=== PATIENT | male | born 1945 | race Caucasian/White ===

== ENCOUNTER 2023-11-28 21:45 | Emergency (ER) | payer MEDICARE, SELFPAY ==
--- NOTE | ~2023-11-28 | CT_ITS ---
EXAMINATION: CT cervical spine wo con DATE: 11/28/2023 22:24 INDICATION: Head injury. TECHNIQUE: Computed tomography (CT) of the cervical spine was performed without intravenous contrast. Automated exposure control and iterative reconstruction technique were employed. The dose-length pro duct was 681.00 mGy-cm. COMPARISON: None FINDINGS: There is mild emphysema. Bone alignment is normal. Vertebral body heights are normal. There is mildly decreased disc height at C3-C4 and C4-C5 and severely decreased disc height at C5-C6 and C 6-C7. The following disc levels are specifically discussed: C2-C3: There is moderate bilateral uncovertebral joint osteoarthritis. There is severe right and mild left facet joint osteoarthritis. There is mild right neural foraminal stenosis. There is no central canal stenosis. C3-C4: There is moderate right uncovertebral joint osteoarthritis. There is ankylosis of left uncover tebral joint with moderate hypertrophy. There is mild right facet joint osteoarthritis. There is anky losis of left facet joint with moderate hypertrophy. There is mild bilateral neural foraminal stenosi s. There is mild central canal stenosis. C4-C5: There is moderate bilateral uncovertebral joint osteoarthritis. There is severe bilateral face t joint osteoarthritis. There is mild bilateral neural foraminal stenosis. There is mild central elvis l stenosis. C5-C6: There is severe bilateral uncovertebral joint osteoarthritis. There is moderate bilateral face t joint osteoarthritis. There is mild bilateral neural foraminal stenosis. There is mild central elvis l stenosis. C6-C7: There is severe bilateral uncovertebral joint osteoarthritis. There is moderate bilateral face t joint osteoarthritis. There is moderate right and mild left neural foraminal stenosis. There is mil d central canal stenosis. C7-T1: There is severe right and moderate left uncovertebral joint osteoarthritis. There is moderate right and severe left facet joint osteoarthritis. There is mild bilateral neural foraminal stenosis. There is mild central canal stenosis. IMPRESSION: 1. No fracture. 2. Severe cervical spondylosis. Reviewed, dictated and finalized at location E.
--- NOTE | ~2023-11-28 | CT_ITS ---
EXAMINATION: CT brain wo con DATE: 11/28/2023 22:24 INDICATION: Head injury. TECHNIQUE: Computed tomography (CT) of the head was performed without intravenous contrast. The mA wa s adjusted according to patient size. Iterative reconstruction technique was employed. The dose-lengt h product was 681.00 mGy-cm. COMPARISON: None FINDINGS: There is no intracranial hemorrhage, acute infarction, or abnormal intracranial mass lesion . The ventricles are normal in size. There is mild mucosal thickening paranasal sinuses. The mastoid air cells are normal. The orbits are normal. There is a left posterior scalp laceration. IMPRESSION: 1. Normal brain. Reviewed, dictated and finalized at location E. IMPRESSION: 1. Normal brain.
--- NOTE | ~2023-11-28 | XR_ITS ---
EXAMINATION: XR chest 2V DATE: 11/28/2023 22:14 INDICATION: Syncope. TECHNIQUE: Frontal and lateral views of the chest were obtained. COMPARISON: None. FINDINGS: There is mild atelectasis at left lung base. There is no pneumonia, pleural effusion, or pn eumothorax. The heart size is normal. There is mild chronic anterior wedging of multiple vertebral yudith dies. IMPRESSION: 1. Mild atelectasis at left lung base. Reviewed, dictated and finalized at location E.
[2023-11-28 21:48] VITALS: BP 99/67; PULSE 81; RESP 12; TEMP 36.8; O2SAT 98
--- NOTE | 2023-11-28 21:50 | ECG_ITS ---
Test Date: 2023-11-28 21:52:08 Measurements Intervals [place] Rate: 79 P: 28 WA: 172 QRS: 47 QRSD: 85 T: 53 QT: 336 QTc: 387 Interpretive Statements SINUS RHYTHM BASELINE ARTIFACT- II, III, AVR, AVL, AVF, V4-V6 NORMAL ECG No previous ECG available for comparison Electronically Signed On 11-29-2023 07:11:36 CDT by Alexandro Golden D.O.
[2023-11-28 22:04] LABS: Basophils Percent Auto 0.5 % (0.2-1.2); Eosinophils Absolute Auto 0.3 K/mm3 (0-0.3); Eosinophils Percent Auto 4.3 % (0-4.4); Hematocrit 36.1 % (42.0-52.0); Hemoglobin 11.8 g/dL (14.0-18.0); Immature Granulocyte Absolute 0.04 K/mm3 (0.00-0.031); Immature Granulocyte Percent A 0.7 % (0-0.5); Lymphocytes Absolute Auto 1.41 K/mm3 (0.9-3.2); Lymphocytes Percent Auto 23.1 % (18.3-44.2); Mean Corpuscular HGB Conc 32.7 g/dl (32-36); Mean Corpuscular Hemoglobin 30.8 pg (26-34); Mean Corpuscular Volume 94.3 fl (80-100); Mean Platelet Volume 10.1 fl (7.4-10.4); Monocytes Absolute Auto 0.6 K/mm3 (0.1-0.6); Monocytes Percent Auto 10.3 % (2.6-8.5); Neutrophils Absolute Auto 3.7 K/mm3 (1.3-6.7); Neutrophils Percent Auto 61.1 % (45.5-73.1); Platelet Count Result 198 k/mm3 (150-375); Red Blood Count 3.83 M/mm3 (4.6-6.20); Red Cell Distribution Width 13.2 % (11.5-14.5); White Blood Count 6.1 K/mm3 (4.5-10.0)
[2023-11-28 22:14] LABS: Alanine Aminotransferase 13 U/L (6-50); Albumin Level 4.5 g/dL (3.5-5.1); Alkaline Phosphatase 77 U/L (38-126); Anion Gap 14 mmol/L (4-12); Aspartate Amino Transferase 22 U/L (17-59); Bilirubin,Total 0.8 mg/dL (0.2-1.3); Blood Urea Nitrogen 23 mg/dL (9-20); Calcium 9.2 mg/dL (8.4-10.2); Carbon Dioxide 21 mmol/L (22-30); Chloride 103 mmol/L (98-107); Estimated CRCL calculation 38 ml/min; Estimated Glomerular Filt Rate 42; Glucose 138 mg/dL (65-110); Potassium 4.2 mmol/L (3.4-5.0); Sodium 138 mmol/L (137-145)
[2023-11-28 23:05] VITALS: BP 117/76; PULSE 87
[2023-11-28 23:06] VITALS: BP 105/72; PULSE 91
--- NOTE | 2023-11-28 23:06 | ED.GENADULT ---
HPI - General Adult General Chief complaint: Syncope Stated complaint: syncope/head injury Time Seen by Provider: 11/28/23 22:40 History of Present Illness HPI narrative: 78-year-old male presents emergency department for evaluation after having a syncopal episode. Patient states he had been at softball games all day today and possibly not drinking enough water. Patient did have some alcohol with dinner. Patient states he was feeling kind of warm there standing therefore droop picture when he had an episode of loss of consciousness and fell back and struck his head. Patient remained unconscious for approximately 1 minute. Patient denies any chest pain or shortness of breath prior to the fall. Patient denies any complaints upon arrival to the emergency department. Patient does have a posterior scalp laceration with bleeding controlled. Related Data Allergies Allergy/AdvReac Type Severity Reaction Status Date / Time No Known Allergies Allergy Verified 11/28/23 23:44 Review of Systems Review of Systems: All systems reviewed & are unremarkable except as noted in HPI and below Course Course Emergency Course: Patient has had lack was stable as described the procedure note and patient preferred to be discharged home. Vital Signs Vital signs: Vital Signs Temperature 98.3 F 11/28/23 21:48 Pulse Rate 81 11/28/23 21:48 Respiratory Rate 12 11/28/23 21:48 Blood Pressure 99/67 L 11/28/23 21:48 Pulse Oximetry 98 11/28/23 21:48 Oxygen Delivery Room Air 11/28/23 21:48 Temperature 98.3 F 11/28/23 21:48 Pulse Rate 105 H 11/29/23 00:40 Respiratory Rate 18 11/29/23 00:40 Blood Pressure 114/76 11/29/23 00:40 Pulse Oximetry 98 11/29/23 00:40 Oxygen Delivery Room Air 11/28/23 21:48 Procedures Laceration Laceration 1: Time: 00:00 Site: scalp Size (cm): 3 Description: linear Depth: simple, single layer Local Anesthetic: lidocaine 1% and with epi Amount of anesthesia used (mL): 4 Pre-repair: wound explored, irrigated and irrigated extensively ====== Skin Level ====== Skin layer closed with: [email or web address] Number of sutures: 6 Technique: simple, interrupted ====== Subcutaneous Layer ====== ====== Muscle Layer ====== ====== Tendon Layer ====== Medical Decision Making MDM Narrative Medical decision making narrative: 78-year-old male presents to the emergency department for evaluation for a syncopal episode. Patient states he had been at softball games all day long, did not drink enough water, did have alcohol for dinner and did have morning of the episode. In the emergency department patient states he does feel improved. Patient was offered admission for syncope but patient declined. Patient was educated on reasons to return to the emergency department. Differential Diagnosis Differential Diagnosis: Cardiac syncope, orthostatic hypotension, dehydration Vital Signs Vital Signs: Vital Signs Temperature 98.3 F 11/28/23 21:48 Pulse Rate 81 11/28/23 21:48 Respiratory Rate 12 11/28/23 21:48 Blood Pressure 99/67 L 11/28/23 21:48 Pulse Oximetry 98 11/28/23 21:48 Oxygen Delivery Room Air 11/28/23 21:48 Temperature 98.3 F 11/28/23 21:48 Pulse Rate 105 H 11/29/23 00:40 Respiratory Rate 18 11/29/23 00:40 Blood Pressure 114/76 11/29/23 00:40 Pulse Oximetry 98 11/29/23 00:40 Oxygen Delivery Room Air 11/28/23 21:48 Lab Data Lab results reviewed: Yes I reviewed the patient's lab results. 11/28/23 21:58 11/28/23 21:58 Labs: Lab Results 11/28/23 Range/Units 21:58 WBC 6.1 (4.5-10.0) K/mm3 RBC 3.83 L (4.6-6.20) M/mm3 Hgb 11.8 L (14.0-18.0) g/dL Hct 36.1 L (42.0-52.0) % MCV 94.3 (80-100) fl MCH 30.8 (26-34) pg MCHC 32.7 (32-36) g/dl RDW 13.2 (11.5-14.5) % Plt Count 198 (150-375) k/mm3 MPV 10.1 (7.4-
[2023-11-28 23:08] VITALS: BP 125/79; PULSE 96
[2023-11-28] MEDS: LIDO 1%/EPINEPHRINE 1:100,000 20 ML VIAL 10 ML INFILTRATE (23:46)
[2023-11-29 00:40] VITALS: BP 114/76; PULSE 105; RESP 18; O2SAT 98
== END 2023-11-29 00:42 | disposition home or self-care (01) ==
PROVIDERS: Emergency Provider Emergency Medicine; PCP Emergency Medicine
DX: R55 Syncope and collapse (principal); S01.01XA Laceration without foreign body of scalp, initial encounter; M47.812 Spondylosis without myelopathy or radiculopathy, cervical region; W18.39XA Other fall on same level, initial encounter
CPT/HCPCS: 12002; 36415; 70450; 71046; 72125; 80053; 85025; 93005; 99284